=== PATIENT | female | born 1955 | race Caucasian/White ===

== ENCOUNTER 2017-04-23 15:01 | Emergency (ER) | payer OTHER ==
--- NOTE | 2017-04-23 15:21 | PDOC ---
History of Present Illness - General History Source: Patient Exam Limitations: No Limitations - History of Present Illness Initial Comments: 04/23/17 15:50 The patient is a 61 year old female, with a significant past medical history of hypertension, hyperlipidemia, diabetes and hypothyroidism, who presents to the emergency department with a floater in the left eye for the past 4 days. The patient reports that the floater has been persistent for the past 4 days and does move around. The patient describes seeing intermittent "flashing lights". The patient additionally reports left eye pain when she looks superiorly and laterally. The patient denies any right eye involvement. The patient denies any double vision or headache. The patient denies any recent trauma to the left eye. Allergies: None reported. Past Surgical History: None reported. Social History: Non-smoker. Denies alcohol or drug use. <Alisa Sewell - Last Filed: 04/23/17 15:58> <Feliberto Browning - Last Filed: 04/23/17 16:46> - General Chief Complaint: Eye Problem Stated Complaint: SENT FROM URGENT CARE FOR EVALUATION OF FLOATERS Time Seen by Provider: 04/23/17 15:04 Past History <Ailsa Sewell - Last Filed: 04/23/17 15:58> <Feliberto Browning - Last Filed: 04/23/17 16:46> - Past Medical History Allergies/Adverse Reactions: Allergies Allergy/AdvReac Type Severity Reaction Status Date / Time No Known Allergies Allergy Unverified 04/23/17 15:24 Home Medications: Ambulatory Orders Atorvastatin Ca [Lipitor] 10 mg PO HS 04/23/17 Cholecalciferol (Vitamin D3) [Vitamin D3 -] 1 tab PO DAILY 04/23/17 Levothyroxine [Synthroid -] 200 mcg PO DAILY 04/23/17 Metformin HCl [Glucophage] 500 mg PO DAILY 04/23/17 Ramipril 10 mg PO DAILY 04/23/17 Review of Systems - Review of Systems Able to Perform ROS?: Yes Comments:: 04/23/17 15:23 A complete review of 10 out of 10 review of systems is taken and is negative apart from what is previously mentioned below and in the HPI. <Alisa Sewell - Last Filed: 04/23/17 15:58> *Physical Exam - Physical Exam Comments: 04/23/17 15:52 Vitals: Triage vital signs reviewed. General Appearance: No acute distress, well nourished, well developed. Head: Atraumatic, normocephalic. Eyes: Pupils equal round reactive, extraocular movements intact. No visual field deficits. Slight pain when looking laterally to the left, visual acuity 20 /30 bilaterally. Neck: Supple. No nuchal rigidity. Chest Wall: Nontender. Cardiac: Regular rate and rhythm. No murmurs, no rubs, no gallops. Lungs: Clear to auscultation bilaterally, good air movement bilaterally. Abdomen: Soft, nondistended, normal bowel sounds, nontender to palpation. Extremities: Full range of motion to all extremities, no cyanosis, clubbing, or edema. Skin: Warm and dry, no rashes or lesions, no petechiae. Neuro: AOX3. Cranial Nerves 2-12 grossly intact. Strength intact to all extremities. Sensation intact to all extremities. Finger to nose intact. Gait normal. Psych: Normal mood, normal affect. <Alisa Sewell - Last Filed: 04/23/17 15:58> Medical Decision Making - Medical Decision Making 04/23/17 15:[address] Iza Mejia (ophthalmology) at 15:20. Case discussed with Dr. Knight (neurology) at 15:30. <Alisa Sewell - Last Filed: 04/23/17 15:58> - Medical Decision Making Case discussed with ophthalmology symptoms not concerning for stroke recommend follow-up were able to arrange an appointment tomorrow at noon with . Case discussed with neurology. Low suspicion for stroke however if possible recommends MRI brain MRA head and neck. I attempted to arrange for patient's MRI while in the hospital however patient became claustrophobic did not want to try MRI again. At this point given that her symptom has been going on for 4 days she has follow-up with ophthalmology tomorrow and can follow up with neurology later this week we will discharge patient from the emergency Department she'll return to ED for any severe worsening symptoms she will follow-up tomorrow with ophthalmology and later in the week with neurology Findings, the need for follow-up, strict return instructions discussed with patient. <Feliberto Browning - Last Filed: 04/23/17 16:46> *DC/Admit/Observation/Transfer - Attestations Scribe Attestion: 04/23/17 15:22 Documentation prepared by Alisa Sewell, acting as medical data entry clerk for Feliberto Browning MD. <Alisa Sewell - Last Filed: 04/23/17 15:58> - Discharge Dispostion Admit: No <Feliberto Browning - Last Filed: 04/23/17 16:46> Diagnosis at time of Disposition: Floaters Qualifiers: Laterality: left Qualified Code(s): H43.392 - Other vitreous opacities, left eye - Discharge Dispostion Condition at time of disposition: Stable - Referrals Referrals: Iza Mejia MD [Staff Physician] - Arya Knight MD [Staff Physician] - Al Lainez [Staff Physician] - - Patient Instructions Printed Discharge Instructions: DI for Eye Floaters Additional Instructions: Follow-up tomorrow with at noon. Her office is located across from [address] Call tomorrow morning to schedule follow-up appointment with Dr. Knight neurology. Dr. Knight also recommended that he follow-up with a diabetic retinologist as well his name is Dr. Lainez Return to the emergency department for any severe worsening symptoms or for any concerns.
[2017-04-23 15:24] VITALS: BP 163/93; PULSE 69; TEMP 98.1; BMI 56.8
== END 2017-04-23 17:10 | disposition home or self-care (01) ==
LOC: FER 15:01
DX: H43.392 Other vitreous opacities, left eye (principal); I10 Essential (primary) hypertension; E78.5 Hyperlipidemia, unspecified; E11.9 Type 2 diabetes mellitus without complications; E03.9 Hypothyroidism, unspecified
CPT/HCPCS: 99281-25

== ENCOUNTER 2018-07-03 11:42 | Emergency (ER) | payer OTHER ==
[2018-07-03 12:04] VITALS: BP 121/59; PULSE 53; TEMP 97.5; BMI 56.2
[2018-07-03] MEDS ORDERED: KETOROLAC TROMETHAMINE 30 MG/1 ML VIAL IM ONE (13:22)
[2018-07-03] MEDS ORDERED: ACETAMINOPHEN 325 MG TABLET (FP) PO ONE (13:22)
--- NOTE | 2018-07-03 13:25 | PDOC ---
History of Present Illness - General Chief Complaint: Injury Stated Complaint: FALL/RT ARM INJURY Time Seen by Provider: 07/03/18 13:19 History Source: Patient Exam Limitations: No Limitations - History of Present Illness Initial Comments: 07/03/18 13:24 CHIEF COMPLAINT: Fall HISTORY OF PRESENT ILLNESS: This is a 62-year-old female with hypertension, hypothyroidism, and pre-diabetes who presents following a fall. She reports tripping on a curb and falling onto her right shoulder this morning. She denies head trauma, LOC, or neck pain. Vital signs on arrival are unremarkable. GENERAL/CONSTITUTIONAL: No fever or chills. No weakness. HEAD, EYES, EARS, NOSE AND THROAT: No change in vision. No sore throat. Rhinorrhea. CARDIOVASCULAR: No chest pain or shortness of breath RESPIRATORY: Cough x 1 month. No wheezing or hemoptysis. GASTROINTESTINAL: Nausea. No vomiting, diarrhea or constipation. GENITOURINARY: No dysuria, frequency, or change in urination. MUSCULOSKELETAL: Right arm and shoulder pain. SKIN: No rash or bruising. NEUROLOGIC: No headache, vertigo, loss of consciousness, or change in strength/ sensation. ENDOCRINE: No increased thirst. No abnormal weight change HEMATOLOGIC/LYMPHATIC: No anemia or easy bleeding, no history of blood clots. ALLERGIC/IMMUNOLOGIC: No hives or skin allergy. PHYSICAL EXAM: GENERAL: Awake, alert, and fully oriented, in no acute distress. HEAD: No signs of trauma, normocephalic, atraumatic. EYES: PERRLA, EOMI, sclera anicteric, conjunctiva clear. ENT: Auricles normal inspection, hearing grossly normal, nares patent, oropharynx clear without exudates. Moist mucosa. NECK: Normal ROM, supple, no lymphadenopathy, JVD, or masses. No midline vertebral tenderness. LUNGS: No distress, speaks full sentences, clear to auscultation bilaterally. HEART: Regular rate and rhythm, normal S1 and S2, no murmurs, rubs or gallops, peripheral pulses normal and equal bilaterally. ABDOMEN: Soft, obese, nontender, normoactive bowel sounds. No guarding, no rebound. No masses. EXTREMITIES: Limited range of motion of right arm - unable to elevate or abduct due to pain in posterior shoulder. Radial, ulnar, and brachial pulses 2+. Normal movement and sensation of fingers. Able to pronate, supinate arm. NEUROLOGICAL: Cranial nerves II through XII grossly intact. Normal speech, no focal sensorimotor deficits. SKIN: Warm, Dry, normal turgor, no rashes or lesions noted. 07/03/18 13:38 Past History - Past Medical History Allergies/Adverse Reactions: Allergies Allergy/AdvReac Type Severity Reaction Status Date / Time No Known Allergies Allergy Unverified 07/03/18 12:04 Home Medications: Ambulatory Orders Atorvastatin Ca [Lipitor] 10 mg PO HS 04/23/17 Cholecalciferol (Vitamin D3) [Vitamin D3 -] 1 tab PO DAILY 04/23/17 Levothyroxine [Synthroid -] 200 mcg PO DAILY 04/23/17 Metformin HCl [Glucophage] 500 mg PO DAILY 04/23/17 Ramipril 10 mg PO DAILY 04/23/17 COPD: No Diabetes: Yes HTN: Yes Hypercholesterolemia: Yes Thyroid Disease: Yes (HYPOTHYROIDISM) - Immunization History Immunization Up to Date: Yes - Suicide/Smoking/Psychosocial Hx Smoking History: Never smoked Have you smoked in the past 12 months: No Information on smoking cessation initiated: No Hx Alcohol Use: No Drug/Substance Use Hx: No Substance Use Type: Alcohol *Physical Exam - Vital Signs Last Vital Signs Temp Pulse Resp BP Pulse Ox 97.5 F L 53 L 19 121/59 L 99 07/03/18 12:00 07/03/18 12:00 07/03/18 12:00 07/03/18 12:00 07/03/18 12:00 Moderate Sedation - Procedure Monitoring Vital Signs: Procedure Monitoring Vital Signs Temperature 97.5 F L 07/03/18 12:00 Pulse Rate 53 L 07/03/18 12:00 Respiratory Rate 19 07/03/18 12:00 Blood Pressure 121/59 L 07/03/18 12:00 O2 Sat by Pulse Oximetry (%) 99 07/03/18 12:00 ED Treatment Course - RADIOLOGY Radiology Studies Ordered: Category Date Time Status ELBOW-RIGHT [RAD] Stat Radiology 07/03/18 13:24 Ordered HUMERUS-RIGHT [RAD] Stat Radiology 07/03/18 13:23 Ordered SHOULDER-RIGHT [RAD] Stat Radiology 07/03/18 13:23 Ordered Medical Decision Making - Medical Decision Making 07/03/18 13:35 A/P: 62-year-old female with right shoulder and arm pain s/p fall. -Right shoulder, humerus, elbow xrays, sling -Toradol 30mg IM, Tylenol 650mg PO 07/03/18 15:[address] Sheikh: no acute fx. Supportive care, orthopedic referral. Patient in agreement with the plan. *DC/Admit/Observation/Transfer Diagnosis at time of Disposition: Fall, Shoulder contusion - Discharge Dispostion Disposition: HOME Condition at time of disposition: Stable Decision to Admit order: No - Referrals Referrals: Tristen Jones MD [Primary Care Provider] - 3 days - Patient Instructions Printed Discharge Instructions: DI for Shoulder Sprain Additional Instructions: -Apply ice for 15 minutes at a time 5 times daily -Take naproxen as prescribed with food for no longer than one week -Add Tylenol #3 at night if needed -Follow up with your orthopedist as discussed -Return for worsening pain or any other concerning symptoms - Post Discharge Activity
[2018-07-03] MEDS ORDERED: ACETAMINOPHEN 325 MG TABLET (FP) ONE (13:29)
== END 2018-07-03 15:09 | disposition home or self-care (01) ==
LOC: JERFT 11:42
PROC: 3E0233Z Introduction of Anti-inflammatory into Muscle, Percutaneous Approach (ICD-10-PCS; principal; 2018-07-03)
DX: S40.011A Contusion of right shoulder, initial encounter (principal); W10.1XXA Fall (on)(from) sidewalk curb, initial encounter; Y93.89 Activity, other specified; Y92.480 Sidewalk as the place of occurrence of the external cause; Y99.8 Other external cause status; I10 Essential (primary) hypertension; E78.00 Pure hypercholesterolemia, unspecified; E03.9 Hypothyroidism, unspecified; E11.9 Type 2 diabetes mellitus without complications; Z79.84 Long term (current) use of oral hypoglycemic drugs
CPT/HCPCS: 73030-TC-RT-FY; 73060-TC-RT-FY; 73070-TC-RT-FY; 99281-25

== ENCOUNTER → 2022-01-01 | Day surgery (SDC) | payer OTHER | END | disposition home or self-care (01) | LOC: JRADIR 09:38 | PROVIDERS: ATTEND Internal Medicine Endocrinology, Diabetes & Metabolism | PROC: 0G9H3ZX Drainage of Right Thyroid Gland Lobe, Percutaneous Approach, Diagnostic (ICD-10-PCS; principal; 2022-01-01) | DX: E04.1 Nontoxic single thyroid nodule (principal) | CPT/HCPCS: 10005; 76942; 88173; 88305-TC ==